=== PATIENT | male | born 1990 | race Caucasian/White ===

== ENCOUNTER 2021-07-22 18:57 | Emergency (ER) | payer OTHER ==
[~2021-07-22] VITALS: Ht 182.8 cm; Wt 108.5 kg
[2021-07-22 19:00] VITALS: BP 137/89
--- NOTE | 2021-07-22 19:08 | ED Upper Extremity ---
General Chief Complaint: Upper Extremity Stated Complaint: WC,L INDEX FINGER LAC Nursing Triage Note: Pt reports he was at work and had a 500 pound paper roll over his left index finger. Pt unsure of last tetanus. History of Present Illness Date Seen by Provider: Jul 22, 2021 Time Seen by Provider: 19:05 Initial Comments 30 yr M is here with c/o a crush injury at work where a 500lb of paper rolled over his finger and pushed it against a machine. Pt has a superficial laceration, pain , and mild swelling over that fingertip. Denies sensory loss or loss of function. Allergies and Home Medications Allergies Coded Allergies: No Known Drug Allergies (Unverified , 07/22/21) Patient Home Medication List Home Medication List Reviewed: Yes Review of Systems Constitutional: no symptoms reported EENTM: no symptoms reported Respiratory: no symptoms reported Cardiovascular: no symptoms reported Gastrointestinal: no symptoms reported Genitourinary: no symptoms reported Musculoskeletal: joint pain Skin: no symptoms reported Psychiatric/Neurological: No Symptoms Reported Physical Exam Vital Signs Vital Signs - First Documented 07/22/21 19:00 Temp 36.2 Pulse 90 Resp 17 B/P (MAP) 137/89 (105) Pulse Ox 97 O2 Delivery Room Air Capillary Refill : Less Than 3 Seconds Height, Weight, BMI Height: '" Weight: lbs. oz. kg; 32.00 BMI Method: General Appearance: WD/WN, no apparent distress HEENT: PERRL/EOMI Neck: full range of motion, normal inspection Hand: Left (left 2nd distal phalanx with superfical laeration that is 2mm long along lateral side of nailbed. NV bundle intact. Tenderness over the distal phlanx.), bone tenderness, nail injury, soft tissue tenderness, swelling (dirty wound, lac is 1cm on lateral nail bed) Neurologic/Tendon: normal sensation, normal motor functions, normal tendon functions, responds to pain Neurologic/Psychiatric: no motor/sensory deficits, alert, normal mood/affect, oriented x 3 Progress/Results/Core Measures Results/Orders My Orders Orders - YURIY FLORES MD Finger(S) (07/22/21 19:10) Vital Signs/I&O 07/22/21 19:00 Temp 36.2 Pulse 90 Resp 17 B/P (MAP) 137/89 (105) Pulse Ox 97 O2 Delivery Room Air Blood Pressure Mean: 105 Progress Progress Note : Progress Note 1. LEFT 2nd FINGER CRUSH INJURY/ LACERATION: - XR left finger:no fracture - Pt had had a tetanus shot within the last 7 years - Wound care/ antibiotic ointment, dressing - Keflex 500mg BID for 5 days - NSAID prn pain - Daily wound care instructions given Diagnostic Imaging Diagonstic Imaging: Xray Plain Films/CT/US/NM/MRI: hand Comments [place] NAME: ERMIAS OTERO [facility] REC#: [id number] PT STATUS: REG ER : 1990 PHYSICIAN: YURIY FLORES MD ADMIT DATE: 07/22/21/ER FS Draft Date of Exam:07/22/21 FINGER(S) INDICATION: Index finger injury. AP, oblique and lateral views of the left index finger reveal irregularity and injury to the nail bed region; however, no fracture or malalignment is identified and there is no radiopaque foreign object. IMPRESSION: Nailbed region injury without acute osseous abnormality identified. Dictated on workstation # [id number] Dict: 07/22/211924 Trans: 07/22/211926 [facility] [id number] Interpreted by: SUSHMA LITTLE MD Electronically signed by: Departure Impression Primary Impression: Crushing injury of left index finger, initial encounter Additional Impression: Nailbed laceration, finger Qualified Codes: S61.319A - Laceration without foreign body of unspecified finger with damage to nail, initial encounter Disposition: 01 HOME, SELF-CARE Condition: Stable Departure-Patient Inst. Patient Instructions: Crush Injury, Common Finger Injuries Add. Discharge Instructions: - Pt had had a tetanus shot within the last 7 years - Wound care/ antibiotic ointment, dressing - Keflex 500mg BID for 5 days - NSAID prn pain - Daily wound care instructions given All discharge instructions reviewed with patient and/or family. Voiced understanding. 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 Restrictions: No heavy lifting or manual aborusing left hand , until next week YURIY FLORES MD Jul 22, 2021 19:07
--- NOTE | 2021-07-22 19:28 | Diagnostic Imaging Report ---
INDICATION: Index finger injury. AP, oblique and lateral views of the left index finger reveal irregularity and injury to the nail bed region; however, no fracture or malalignment is identified and there is no radiopaque foreign object. IMPRESSION: Nailbed region injury without acute osseous abnormality identified. Dictated by: Dictated on workstation # [id number]
[2021-07-22] MEDS ORDERED: CEPH500T PO (19:53)
[2021-07-22] MEDS ORDERED: CEPHALEXIN 250 MG (KEFLEX) CAP PO STA (19:57)
[2021-07-22] MEDS ORDERED: IBUPROFEN 600 MG (MOTRIN) TAB PO STA (19:57)
== END 2021-07-22 20:04 | disposition home or self-care (01) ==
LOC: ER FS 18:59
DX: S67.191A Crushing injury of left index finger, initial encounter (principal); S61.311A Laceration without foreign body of left index finger with damage to nail, initial encounter; X50.1XXA Overexertion from prolonged static or awkward postures, initial encounter
CPT/HCPCS: 73140